=== PATIENT | female | born 1970 | race Caucasian/White ===

== ENCOUNTER 2016-11-20 08:09 | Emergency (ER) | payer MEDICAID ==
[2016-11-20 09:31] LABS: ABSOLUTE EOSINOPHILS # (AUTO) 0.2 10^3/uL (0.0-0.6); ABSOLUTE LYMPHOCYTES (AUTO) 1.3 10^3/uL (0.5-4.7); ABSOLUTE MONOCYTES (AUTO) 0.4 10^3/uL (0.1-1.4); ABSOLUTE NEUT (AUTO) 4.6 10^3/uL (1.7-8.2); BASOPHILS % (AUTO) 0.5 % (0-2); EOSINOPHILS % (AUTO) 2.9 % (0-6); HEMATOCRIT 40.2 % (36.0-47.0); HEMOGLOBIN 13.7 g/dL (12.0-15.5); HGB HCT DIFFERENCE 0.9; LYMPHOCYTES % (AUTO) 20.2 % (13-45); MEAN CORPUSCULAR HEMOGLOBIN 30.8 pg (27.0-33.4); MEAN CORPUSCULAR HGB CONC 34.1 g/dL (32.0-36.0); MEAN CORPUSCULAR VOLUME 91 fl (80-97); MONOCYTES % (AUTO) 6.5 % (3-13); RED BLOOD COUNT 4.44 10^6/uL (3.72-5.28); RED CELL DISTRIBUTION WIDTH 13.4 % (11.5-14.0); SEGMENTED NEUTROPHILS % (AUTO) 69.9 % (42-78); WHITE BLOOD COUNT 6.6 10^3/uL (4.0-10.5)
[2016-11-20 09:34] LABS: APPEARANCE,URINE SLIGHTLY-CLOUDY; BILIRUBIN,URINE NEGATIVE (NEGATIVE); GLUCOSE, URINE NEGATIVE (NEGATIVE); KETONES,URINE NEGATIVE (NEGATIVE); LEUKOCYTE ESTERASE,URINE NEGATIVE (NEGATIVE); NITRITE,URINE NEGATIVE (NEGATIVE); PROTEIN,URINE NEGATIVE (NEGATIVE); URINE SPECIFIC GRAVITY 1.015; UROBILINOGEN,URINE NEGATIVE mg/dL (<2.0)
--- NOTE | 2016-11-20 09:45 | ER Document Report ---
ED General <LEEANN DELATORRE - Last Filed: 11/20/16 13:41> - General Mode of Arrival: Ambulatory Information source: Patient TRAVEL OUTSIDE OF THE [place] IN LAST 30 DAYS: No - HPI Onset: Last week Onset/Duration: Sudden, Persistent Quality of pain: Achy Severity: Severe Pain Level: 4 Associated symptoms: Nausea Exacerbated by: Food Relieved by: Denies Similar symptoms previously: No Recently seen / treated by doctor: No <VARUN BROWER - Last Filed: 11/20/16 18:33> - General Chief Complaint: Abdominal Pain Stated Complaint: STOMACH PAIN Notes: Patient presents to the emergency department with complaints of epigastric pain that radiates to RUQ and to her back since last week. Patient reports for the past 3 days she's been unable to sleep due to the pain. She reports some nausea denies fever vomiting diarrhea. Patient reports pain increases when she eats something. She denies pain with void. She denies vaginal discharge. She reports she's been taking her Percocet from her pain management and that is not even helping the pain. (VARUN BROWER) - Related Data Allergies/Adverse Reactions: ciprofloxacin [Ciprofloxacin] Adverse Reaction (Intermediate, Verified 11/13/15 07:52) nausea and vomiting tomatoes Allergy (Uncoded 11/13/15 16:58) Past Medical History - General Information source: Patient Last Menstrual Period: 2 weeks ago - Social History Smoking Status: Unknown if Ever Smoked Cigarette use (# per day): No Frequency of alcohol use: Occasional Drug Abuse: None Lives with: Spouse/Significant other Family History: Reviewed & Not Pertinent Patient has suicidal ideation: No Patient has homicidal ideation: No Pulmonary Medical History: Reports: Hx Asthma Neurological Medical History: Reports: Hx Migraine Renal/ Medical History: Denies: Hx Peritoneal Dialysis Musculoskeltal Medical History: Reports Other - chronic low back pain Past Surgical History: Reports: Hx Appendectomy - Immunizations Hx Diphtheria, Pertussis, Tetanus Vaccination: Yes <VARUN BROWER - Last Filed: 11/20/16 18:33> Physical Exam <LEEANN DELATORRE - Last Filed: 11/20/16 13:41> <VARUN BROWER - Last Filed: 11/20/16 18:33> - Vital signs Vitals: Temp Pulse Resp BP Pulse Ox 97.5 F 78 16 120/67 98 11/20/16 08:14 11/20/16 08:14 11/20/16 08:14 11/20/16 08:14 11/20/16 08:14 - Notes Notes: PHYSICAL EXAMINATION: GENERAL: Well-appearing and in no acute distress HEAD: Atraumatic, normocephalic. EYES: Pupils equal round extraocular movements intact, sclera anicteric, conjunctiva are normal. ENT: nares patent, Moist mucous membranes. NECK: Normal range of motion, supple without lymphadenopathy LUNGS: CTAB and equal. No wheezes rales or rhonchi. HEART: Regular rate and rhythm without murmurs ABDOMEN: Soft, epigastric RUQ tenderness. No guarding, no rebound BACK: No c/o pain with palpation EXTREMITIES: Normal range of motion, no pitting edema. No cyanosis. NEUROLOGICAL: Cranial nerves grossly intact. Normal sensory/motor exams. PSYCH: Normal mood, normal affect. SKIN: Warm, Dry, normal turgor, no rashes or lesions noted (LEONARDAVARUN) Course - Laboratory Result Diagrams: 11/20/16 09:10 11/20/16 09:10 <LEEANN DELATORRE - Last Filed: 11/20/16 13:41> - Laboratory Result Diagrams: 11/20/16 09:10 11/20/16 09:10 - Diagnostic Test Radiology reviewed: Image reviewed, Reports reviewed - Diagnostic report text EXAM DESCRIPTION: U/S ABDOMEN LIMITED W/O DOP COMPLETED DATE/TIME: 2016 12:23 pm REASON FOR STUDY: RUQ PAIN COMPARISON: None. TECHNIQUE: Dynamic and static grayscale images acquired of the abdomen and recorded on PACS. Additional selected color Doppler and spectral images recorded. LIMITATIONS: Considerable bowel cast is present. . FINDINGS: PANCREAS: Obscured by gas. LIVER: No masses. Echotexture normal. 15.4 cm. LIVER VASCULATURE: Normal directional flow of the main portal vein and hepatic veins. GALLBLADDER: No stones. Normal wall thickness. No pericholecystic fluid. ULTRASOUND-DETECTED CALABRESE'S SIGN: Negative. INTRAHEPATIC DUCTS AND COMMON DUCT : CBD and intrahepatic ducts normal caliber. No filling defects. INFERIOR VENA CAVA: Normal flow. AORTA: The midportion of the aorta was obscured by gas. The proximal and distal portions of the aorta are normal. RIGHT KIDNEY: Normal size. Normal echogenicity. No solid or suspicious masses. No hydronephrosis. No calcifications. PERITONEAL AND RIGHT PLEURAL SPACE: No ascites or effusions. OTHER: No other significant findings. TECHNICAL DOCUMENTATION: JOB ID: [id number] [employer]- All Rights Reserved US/U/S ABDOMEN LIMITED W/O DOP IMPRESSION: NORMAL RIGHT UPPER QUADRANT ULTRASOUND Diagnostic report text EXAM DESCRIPTION : CT ABD/PELVIS WITH IV ORAL COMPLETED DATE/TIME: 11/20/2016 5:16 pm REASON FOR STUDY: abdominal pain COMPARISON: None. TECHNIQUE: CT scan of the abdomen and pelvis performed using helical scanning technique with dynamic intravenous contrast injection. Oral contrast. Images reviewed with lung, soft tissue, and bone windows. Reconstructed coronal and sagittal MPR images reviewed. Delayed images for evaluation of the urinary system also acquired. All images stored on PACS. All CT scanners at this facility use dose modulation , iterative reconstruction, and/or weight based dosing when appropriate to reduce radiation dose to as low as reasonably achievable (ALARA). [facility]: Dose Right [facility]: CareDose [facility]: Dose Right [facility]: Teradose 4D [facility]: inSparq CONTRAST TYPE AND DOSE: 77mL Isovue 370- low osmolar. RENAL FUNCTION: Creatinine 1.2 RADIATION DOSE: 16.14mGy. LIMITATIONS: None. FINDINGS: LOWER CHEST: No significant findings. No nodules or infiltrates. LIVER: Normal size. No masses or dilated ducts. SPLEEN: Normal size. No focal lesions. PANCREAS: No masses. No significant calcifications. No adjacent inflammation or peripancreatic fluid collections. Pancreatic duct not dilated. GALLBLADDER: No identified stones by CT criteria. No inflammatory changes to suggest cholecystitis. ADRENAL GLANDS: No significant masses or asymmetry. RIGHT KIDNEY AND URETER: No solid masses. No significant calcifications. There is mild hydronephrosis/ hydroureter. The ureter can be followed into the pelvis where it becomes of normal caliber. No obstructing calculus is seen. LEFT KIDNEY AND URETER: No solid masses. No significant calcifications. No hydronephrosis or hydroureter. There is a small parapelvic cyst. AORTA AND VESSELS: No aneurysm. No dissection. Renal arteries, SMA, celiac without stenosis. RETROPERITONEUM: No retroperitoneal adenopathy, hemorrhage or masses. BOWEL AND PERITONEAL CAVITY: No masses or inflammatory changes. No free fluid or peritoneal masses. APPENDIX: Not visualized. PELVIS: No mass or free fluid. Normal bladder. ABDOMINAL WALL: No masses. No hernias. BONES: No significant or acute findings. OTHER: No other significant finding. TECHNICAL DOCUMENTATION: JOB ID: [id number] Quality ID # [id number]: Final reports with documentation of one or more dose reduction techniques (e.g., Automated exposure control, adjustment of the mA and/or kV according to patient size, use of iterative reconstruction technique) 2010 [employer]- All Rights Reserved CT/CT ABD/PELVIS WITH IV ORAL IMPRESSION: There is mild right hydronephrosis/hydroureter the etiology of which is not certain. No calculus is seen <VARUN BROWER - Last Filed: 11/20/16 18:33> - Re-evaluation Re-evalutation: 11/20/16 13:41 (LEEANN DELATORRE) 11/20/16 10:31 Patient instructed on pending ultrasound and labs. She will given Percocet for the pain with some Zofran. 11/20/16 13:26 Labs unremarkable ultrasound negative. Patient was provided with pain medication and GI cocktail still reports abdominal pain. EKG unchanged from previous EKG. I have consulted the attending provider Dr Almonte per [facility] guidelines, CT advised. The patient presents with abdominal pain without signs of peritonitis or other life threatening or serious etiology. The patient appears stable for discharge and has been instructed to return immediately if the symptoms worsen in any way or in 8-12 hours if not improved for reevaluation. The patient has been instructed to return if the symptoms worsen or change in any way. 11/20/16 Discussed results with patient. Patient reports she had this same pain years ago and had a HIDA scan done. She reports she was placed on a antispasmodic and her symptoms went away. Patient is requesting antispasmodic. Patient was also instructed on hydronephrosis in the importance of follow-up with a urologist. She verbalized understanding to all instructions. Patient has pain medication at home. (VARUN BROWER) - Vital Signs Vital signs: Temp Pulse Resp BP Pulse Ox 99.3 F 76 20 111/64 100 11/20/16 17:17 11/20/16 17:17 11/20/16 17:17 11/20/16 17:17 11/20/16 17:17 - Laboratory Laboratory results interpreted by me: 11/20/16 09:10 Sodium 145.3 H BUN 21 H Est GFR (Non-Af Amer) 51 L Discharge <LEEANN DELATORRE - Last Filed: 11/20/16 13:41> <VARUN BROWER - Last Filed: 11/20/16 18:33> - Discharge Clinical Impression: Abdominal pain Condition: Stable Disposition: HOME, SELF-CARE Instructions: Abdominal Pain ([facility]), Antispasmodics ([facility]) Additional Instructions: *You have been evaluated for abdominal pain, hydronephrosis *Take your pain medication as prescribed *Take antispasmodic as prescribed *Follow up with your primary care provider within one week *Follow up with a urologist within one week *Return to ED for worsening condition, changes, needs *Return to ED if not better in 24 hours Prescriptions: Dicyclomine HCl [Bentyl 20 mg Tablet] 20 mg PO QID #40 tablet
[2016-11-20] MEDS ORDERED: ONDANSETRON 4 MG TAB.RAPDIS PO ONE (09:59)
[2016-11-20] MEDS ORDERED: OXYCODONE-ACETAMINOPHEN 5-325 MG TABLET PO ONE (09:59)
[2016-11-20 10:02] LABS: ALANINE AMINOTRANSFERASE 27 U/L (9-52); ALBUMIN 4.2 g/dL (3.5-5.0); ALKALINE PHOSPHATASE 94 U/L (38-126); ANION GAP 13 (5-19); ASPARTATE AMINO TRANSFERASE 23 U/L (14-36); BILIRUBIN,DIRECT 0.2 mg/dL (0.0-0.4); BILIRUBIN,TOTAL 0.4 mg/dL (0.2-1.3); BLOOD UREA NITROGEN 21 mg/dL (7-20); CALCIUM 10.1 mg/dL (8.4-10.2); CARBON DIOXIDE 25 mmol/L (22-30); CHLORIDE 107 mmol/L (98-107); CREATININE RESULT 1.15 mg/dL (0.52-1.25); GLUCOSE 91 mg/dL (75-110); LIPASE 54.7 U/L (23-300); POTASSIUM 4.1 mmol/L (3.6-5.0); SODIUM 145.3 mmol/L (137-145)
[2016-11-20] MEDS ORDERED: METOCLOPRAMIDE HCL ORAL SOLN 10 MG/10 ML UDCUP PO ONE (12:49)
[2016-11-20] MEDS ORDERED: LIDOCAINE 2% VISCOUS SOLN 20 ML UDCUP PO ONE (12:49)
[2016-11-20] MEDS ORDERED: MAG HYDROX/AL HYDROX/SIMETH SUSP 30 ML UDCUP PO ONE (12:49)
[2016-11-20 17:23] VITALS: BP 111/64
--- NOTE | 2016-11-20 21:39 | EKG REPORT ---
SEVERITY:- BORDERLINE ECG - SINUS RHYTHM BORDERLINE T ABNORMALITIES, ANTERIOR LEADS : Confirmed by: Jaquelin Conde 20-Nov-2016 21:38:53
== END 2016-11-20 18:17 | disposition home or self-care (01) ==
LOC: ER 08:09
DX: R10.13 Epigastric pain (principal); R10.11 Right upper quadrant pain; R11.0 Nausea; Z88.3 Allergy status to other anti-infective agents
CPT/HCPCS: 93005; 99285; 36415; 83690; 84703; 85025; 80053; 81001; 76705; 74177; 93010; S0119; J3490 ×3

== ENCOUNTER 2016-12-14 12:05 | Day surgery (SDC) | payer MEDICAID ==
[~2016-12-14 12:05] MED LIST: DIPHENHYDRAMINE HCL 50 MG/ML VIAL ONE; EPINEPHRINE INJ 1 MG/10 ML DISP.SYRIN ONE; FENTANYL CITRATE INJ/PF 100 MCG/2 ML AMPUL ONE; FLUMAZENIL INJ 0.5 MG/5 ML VIAL IV ONE; GLUCAGON,HUMAN RECOMB 1 MG INJ ONE; MIDAZOLAM 2 MG/2 ML INJ ONE; NALOXONE HCL INJ/PF 0.4 MG/1 ML SDV ONE; ONDANSETRON HCL INJ/PF 4 MG/2 ML SDV ONE
--- NOTE | 2016-12-14 13:44 | Operative Report ---
Operative Report DATE OF SURGERY: 12/14/16 Operative Report: The risks benefits and alternatives of the procedure explained to the patient in detail and informed consent is obtained.A GIF Olympus video scope was inserted into the patient's mouth and hypopharynx ,the esophagus is identified intubated and insufflated ,the scope was then advanced through the esophagus stomach and duodenum, retroflexion maneuver is done ,the esophagus stomach and first and second portions of the duodenum examined PREOPERATIVE DIAGNOSIS: Epigastric pain POSTOPERATIVE DIAGNOSIS: Esophagitis. Hiatal hernia. Gastritis, gastric erosions. Duodenitis OPERATION: EGD with biopsy SURGEON: SONALI STEVEN ANESTHESIA: Moderate Sedation - 2 mg of Versed, 100 mcg of fentanyl. Conscious sedation monitoring time 30 minutes. TISSUE REMOVED OR ALTERED: Gastric mucosal specimens obtained to rule out Helicobacter pylori COMPLICATIONS: None. ESTIMATED BLOOD LOSS: None. INTRAOPERATIVE FINDINGS: As described above. PROCEDURE: Patient tolerated procedure well. No immediate postprocedure complications are noted. Patient is discharged in good condition. Discharge date 12/14/2016. Discharge diet: Regular. Discharge activity: Regular. 2-3 week follow-up to discuss findings. We will await biopsies. Patient is instructed to call the office or proceed to the emergency room should there be any further problems or questions.
[2016-12-14 14:02] VITALS: BP 105/64
== END 2016-12-14 13:50 | disposition home or self-care (01) ==
LOC: END 12:05
PROVIDERS: ATTEND Internal Medicine Gastroenterology
PROC: 0DB68ZX Excision of Stomach, Via Natural or Artificial Opening Endoscopic, Diagnostic (ICD-10-PCS; principal; 2016-12-14 12:30)
DX: K20.9 Esophagitis, unspecified (principal); K29.50 Unspecified chronic gastritis without bleeding; K44.9 Diaphragmatic hernia without obstruction or gangrene; K29.80 Duodenitis without bleeding; J45.20 Mild intermittent asthma, uncomplicated; R00.0 Tachycardia, unspecified; M47.9 Spondylosis, unspecified; G43.909 Migraine, unspecified, not intractable, without status migrainosus; Z87.891 Personal history of nicotine dependence; Z79.82 Long term (current) use of aspirin; Z88.6 Allergy status to analgesic agent; Z79.891 Long term (current) use of opiate analgesic
CPT/HCPCS: 43239; 88305 ×2; J2250; J3010; J0171; J1200; J1610; J2310; J2405; J3490

== ENCOUNTER → 2017-12-05 | Outpatient (CLI) | payer MEDICAID ==
--- NOTE | 2017-12-05 20:43 | XCELERA REPORT ---
[address] [address] Transthoracic Echocardiogram Report Name: XOCHITL CONNORS Age: 47 yrs Gender: Female : 1970 Patient Status: Outpatient Patient Location: Study Date: 12/05/2017 10:12 AM Height: 768 in Weight: 154 lb BSA: 10.6 m2 Reason For Study: AFIB Ordering Physician: SANDY PUGA Performed By: Citlaly Parrish Interpretation Summary No ASD. No post. pericardial effusion. 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 Normal MV, no LA enlargement. No MR. No LVH, Normal LVEF 62% with no LVDD, Poor endocardial definition in apical view, suspect inferior wall and basal IVS hypokinesis, no LV enlargement. RH poorly seen No TR to derive RVSP, no suspicion of RH enlargement. non-cor sinus aneurysm MMode/2D Measurements & Calculations RVDd: 3.1 cm LVIDd: 4.5 cm FS: 50.1 % Ao root diam: IVSd: 0.89 cm LVIDs: 2.2 cm EDV(Teich): 91.8 ml 3.4 cm LVPWd: 0.96 cm ESV(Teich): 16.9 ml Ao root area: EF(Teich): 81.5 % 8.8 cm2 LA dimension: 2.3 cm LVOT diam: LVLd ap4: 7.8 cm SV(MOD-sp4): 41.0 ml 2.0 cm EDV(MOD-sp4): LA A2Cs: 13.8 cm2 LVOT area: 68.0 ml LVLs ap4: 6.5 cm 3.2 cm2 ESV(MOD-sp4): 27.0 ml EF(MOD-sp4): 60.3 % LA A4Cs: LA length: 4.2 cm LA Vol Index (BP): LA Volume: 26.7 ml 9.5 cm2 2.5 ml/m2 Doppler Measurements & Calculations MV E max emmanuel: MV P1/2t max emmanuel: Ao V2 max: LV V1 max P.6 cm/sec 86.0 cm/sec 96.0 cm/sec 1.9 mmHg MV A max emmanuel: MV P1/2t: 49.0 msec Ao max PG: LV V1 mean P.0 cm/sec MVA(P1/2t): 4.5 cm2 3.7 mmHg 1.2 mmHg MV E/A: 1.2 MV dec slope: WANDER(V,D): 2.3 cm2LV V1 max: 69.8 cm/sec 514.3 cm/sec2 LV V1 mean: 51.4 cm/sec LV V1 VTI: 15.2 cm SV(LVOT): 48.8 ml PA V2 max: 70.6 cm/sec PA max P.1 mmHg Left Ventricle The left ventricle is normal in size, thickness and function. There is normal left ventricular wall thickness. The left ventricular ejection fraction is normal. Doppler measurements suggest normal left ventricular diastolic function. There is inferior wall moderate hypokinesis. There is proximal septal wall mild hypokinesis. There is no thrombus. Right Ventricle The right ventricle is normal in size, thickness and function. The right ventricular systolic function is normal. Atria The right atrium is normal. The left atrial size is normal. The interatrial septum is intact with no evidence for an atrial septal defect. Mitral Valve The mitral valve is normal in structure and function. There is no evidence of mitral valve prolapse. There is no mitral valve stenosis. There is a mild amount of mitral regurgitation. Aortic Valve The aortic valve is normal in structure and functions normally. The aortic valve opens well. Cannot exclude aortic valvular vegetation. There is no aortic valve stenosis. No aortic regurgitation is present. Tricuspid Valve The tricuspid valve is not well visualized secondary to technical limitations. Pulmonic Valve There is no pulmonic valvular regurgitation. Great Vessels Sinus of Valsalva aneurysm. The aortic root is normal size. Effusions There is no pericardial effusion. I WMSI = 1.25 % Normal = 75 Segments Size X - Cannot 2 - 4 - 1-2 small Interpret 1 - Normal Hypokinetic 3 - AkineticDyskinetic 3-5 moderate 5 - 6-14 large Aneurysmal 15-16 diffuse : SANDY PUGA > Sandy Puga
== END ==
LOC: SP 10:00
PROVIDERS: ATTEND Internal Medicine Cardiovascular Disease
DX: I48.0 Paroxysmal atrial fibrillation (principal)
CPT/HCPCS: 93306

== ENCOUNTER → 2017-12-22 | Outpatient (CLI) | payer MEDICAID ==
[2017-12-22 11:35] LABS: HEMATOCRIT 39.5 % (36.0-47.0); HEMOGLOBIN 13.5 g/dL (12.0-15.5); MEAN CORPUSCULAR HGB CONC 34.1 g/dL (32.0-36.0); MEAN CORPUSCULAR VOLUME 91 fl (80-97); PLATELET COUNT 169 10^3/uL (150-450); RED BLOOD COUNT 4.34 10^6/uL (3.72-5.28); RED CELL DISTRIBUTION WIDTH 13.3 % (11.5-14.0); WHITE BLOOD COUNT 5.4 10^3/uL (4.0-10.5)
[2017-12-22 11:56] LABS: ANION GAP 12 (5-19); BLOOD UREA NITROGEN 18 mg/dL (7-20); CALCIUM 9.8 mg/dL (8.4-10.2); CARBON DIOXIDE 23 mmol/L (22-30); CHLORIDE 111 mmol/L (98-107); GLUCOSE 82 mg/dL (75-110); POTASSIUM 4.1 mmol/L (3.6-5.0); SODIUM 145.8 mmol/L (137-145)
[2017-12-22 12:10] LABS: FREE T3 3.93 pg/mL (2.77-5.27); FREE T4 (FREE THYROXINE) 0.9 ng/dL (0.78-2.19)
[2017-12-22 12:24] LABS: THYROID STIMULATING HORMONE 3.95 uIU/mL (0.47-4.68)
== END ==
LOC: OD 10:25
PROVIDERS: ATTEND Internal Medicine Cardiovascular Disease
DX: I48.0 Paroxysmal atrial fibrillation (principal); R07.9 Chest pain, unspecified
CPT/HCPCS: 36415; 80048; 83735; 83880; 84439; 84443; 84481; 85027

== ENCOUNTER 2018-04-29 10:38 | Emergency (ER) | payer MEDICAID ==
[2018-04-29] MEDS ORDERED: MAG HYDROX/AL HYDROX/SIMETH SUSP 30 ML UDCUP PO ONE (11:02)
[2018-04-29] MEDS ORDERED: LIDOCAINE 2% VISCOUS SOLN 20 ML UDCUP PO ONE (11:02)
[2018-04-29] MEDS ORDERED: METOCLOPRAMIDE HCL ORAL SOLN 10 MG/10 ML UDCUP PO ONE (11:02)
--- NOTE | 2018-04-29 11:05 | ER Document Report ---
ED Medical Screen (RME) - General Chief Complaint: Epigastric Pain Stated Complaint: CHEST DISCOMFORT Time Seen by Provider: 04/29/18 10:47 Mode of Arrival: Medic Information source: Patient, Relative, [facility] Records Notes: 48-year-old female with atrial fibrillation presents with complaint of epigastric abdominal pain, substernal chest pain and left arm pain. Patient received aspirin and nitro by EMS prior to arrival. I have greeted and performed a rapid initial assessment of this patient. A comprehensive ED assessment and evaluation of the patient, analysis of test results and completion of medical decision making process we will be contacted by additional ED providers. PHYSICAL EXAMINATION: GENERAL: Appears uncomfortable LUNGS: No respiratory distress Musculoskeletal: Normal range of motion NEUROLOGICAL: Normal speech, normal gait. PSYCH: Normal mood, normal affect. SKIN: Warm, Dry, normal turgor, no rashes or lesions noted. TRAVEL OUTSIDE OF THE [place] IN LAST 30 DAYS: No - HPI Onset: Just prior to arrival Onset/Duration: Gradual, Persistent Quality of pain: Burning, Sharp Associated Symptoms: Chest pain, Dizzy/lightheaded, Nausea, Sweating Exacerbated by: Food Relieved by: Denies Similar symptoms previously: No Recently seen / treated by doctor: No - Related Data Smoking: Non-smoker Frequency of alcohol use: None Drug Abuse: None Allergies/Adverse Reactions: ciprofloxacin [Ciprofloxacin] Adverse Reaction (Intermediate, Verified 04/29/18 10:40) nausea and vomiting aspirin Adverse Reaction (Verified 04/29/18 10:40) tomatoes Allergy (Uncoded 04/29/18 10:40) Past Medical History - Social History Chew tobacco use (# tins/day): No Frequency of alcohol use: Rare Drug Abuse: None - Past Medical History Cardiac Medical History: Reports: Hx Atrial Fibrillation Denies: Hx Coronary Artery Disease, Hx Heart Attack, Hx Hypertension Pulmonary Medical History: Reports: Hx Asthma, Hx Pneumonia - A KID Denies: Hx Bronchitis, Hx COPD Neurological Medical History: Reports: Hx Migraine. Denies: Hx Cerebrovascular Accident, Hx Seizures Renal/ Medical History: Denies: Hx Peritoneal Dialysis Musculoskeltal Medical History: Denies Hx Arthritis Past Surgical History: Reports: Hx Appendectomy. Denies: Hx Hysterectomy - Immunizations Hx Diphtheria, Pertussis, Tetanus Vaccination: Yes Physical Exam - Vital signs Vitals: Temp Pulse Resp BP Pulse Ox 97.9 F 54 L 16 117/58 L 100 04/29/18 10:54 04/29/18 10:54 04/29/18 10:54 04/29/18 10:54 04/29/18 10:54 Course - Vital Signs Vital signs: Temp Pulse Resp BP Pulse Ox 97.9 F 54 L 16 117/58 L 100 04/29/18 10:54 04/29/18 10:54 04/29/18 10:54 04/29/18 10:54 04/29/18 10:54 - Laboratory Result Diagrams: 04/29/18 09:45 04/29/18 09:45 Doctor's Discharge - Discharge Referrals: SANDY PUGA MD [Primary Care Provider] - Follow up as needed
[2018-04-29 11:09] LABS: HEMATOCRIT 44.4 % (36.0-47.0); HEMOGLOBIN 15.1 g/dL (12.0-15.5); RED BLOOD COUNT 4.79 10^6/uL (3.72-5.28); WHITE BLOOD COUNT 4.6 10^3/uL (4.0-10.5)
[2018-04-29 11:10] LABS: ABSOLUTE EOSINOPHILS # (AUTO) 0.1 10^3/uL (0.0-0.6); ABSOLUTE LYMPHOCYTES (AUTO) 1.4 10^3/uL (0.5-4.7); ABSOLUTE MONOCYTES (AUTO) 0.4 10^3/uL (0.1-1.4); ABSOLUTE NEUT (AUTO) 2.7 10^3/uL (1.7-8.2); BASOPHILS % (AUTO) 0.6 % (0-2); EOSINOPHILS % (AUTO) 3.2 % (0-6); LYMPHOCYTES % (AUTO) 29.5 % (13-45); MEAN CORPUSCULAR HEMOGLOBIN 31.6 pg (27.0-33.4); MEAN CORPUSCULAR HGB CONC 34.1 g/dL (32.0-36.0); MEAN CORPUSCULAR VOLUME 93 fl (80-97); PLATELET COUNT 155 10^3/uL (150-450); RED CELL DISTRIBUTION WIDTH 13.1 % (11.5-14.0); SEGMENTED NEUTROPHILS % (AUTO) 57.7 % (42-78); TOTAL CELLS COUNTED % (AUTO) 100 %
[2018-04-29 11:32] LABS: ALANINE AMINOTRANSFERASE 21 U/L (9-52); ALBUMIN 4.4 g/dL (3.5-5.0); ALKALINE PHOSPHATASE 67 U/L (38-126); ANION GAP 12 (5-19); ASPARTATE AMINO TRANSFERASE 21 U/L (14-36); BILIRUBIN,DIRECT 0.3 mg/dL (0.0-0.4); BILIRUBIN,TOTAL 0.5 mg/dL (0.2-1.3); BLOOD UREA NITROGEN 14 mg/dL (7-20); CALCIUM 9.7 mg/dL (8.4-10.2); CARBON DIOXIDE 23 mmol/L (22-30); CHLORIDE 110 mmol/L (98-107); GLUCOSE 74 mg/dL (75-110); LIPASE 82.8 U/L (23-300); POTASSIUM 3.5 mmol/L (3.6-5.0); SODIUM 145.3 mmol/L (137-145); TOTAL PROTEIN 7.6 g/dL (6.3-8.2)
--- NOTE | 2018-04-29 11:35 | RADIOLOGY REPORT (SQ) ---
EXAM DESCRIPTION: CHEST 2 VIEWS COMPLETED DATE/TIME: 04/29/2018 11:26 am REASON FOR STUDY: chest pain COMPARISON: 11/12/2015 EXAM PARAMETERS: NUMBER OF VIEWS: two views TECHNIQUE: Digital Frontal and Lateral radiographic views of the chest acquired. RADIATION DOSE: NA LIMITATIONS: none FINDINGS: LUNGS AND PLEURA: No opacities, masses or pneumothorax. No pleural effusion. MEDIASTINUM AND HILAR STRUCTURES: No masses or contour abnormalities. HEART AND VASCULAR STRUCTURES: Heart normal size. No evidence for failure. BONES: No acute findings. HARDWARE: None in the chest. OTHER: No other significant finding. IMPRESSION: NO ACUTE RADIOGRAPHIC FINDING IN THE CHEST. TECHNICAL DOCUMENTATION: JOB ID: [id number] [employer]- All Rights Reserved Reading location - IP/workstation name: [email or web address]
[2018-04-29] MEDS ORDERED: ONDANSETRON HCL INJ/PF 4 MG/2 ML SDV IV ONE ×2 (12:23→16:59)
--- NOTE | 2018-04-29 12:32 | ER Document Report ---
ED General <ALEXIA PICKARD - Last Filed: 04/29/18 19:22> - General Mode of Arrival: Medic TRAVEL OUTSIDE OF THE [place] IN LAST 30 DAYS: No <DONITA PÉREZ - Last Filed: 04/29/18 20:13> - General Chief Complaint: Epigastric Pain Stated Complaint: CHEST DISCOMFORT Time Seen by Provider: 04/29/18 10:47 Notes: Pt. is a 48 year old female presenting to the ED CC epigastric pain. Stated that this morning the Pt. was eating a piece of toast when she developed sharp 8 /10 pain in her epigastric region, moving into her left arm and back. Denies any choking or coughing episodes. Stated that she has an extensive history of anxiety and depression and her was not home to calm her down. Stated that she called 911. EMS gave the pt ASA and Nitro, Pt. stated the Nitro did not help her pain. Pt. stated treatments in the ED (GI cocktail) got rid of her back pain but the epigastric/center chest pain is still there. Pt. stated she is nauseated but denies fever, diarrhea, URI symptoms, dysuria, lower abd pain, vaginal d/c. Pt. is unsure of LMP. Pt. has a history of a stomach ulcer and is suppose to be taking Omeprazole but has not been taking it for the last few months because she stated she does not like doctors and does not want to go to the doctor and get her prescription refilled. History of afib which she takes ASA for, has never had a stress test or cardiac cath PMH: Stomach ulcers, gallstones, asthma, atrial fibrillation, migraines, chronic lower back pain, anxiety, depression Indications: Aspirin, Percocet, topiramate, metoprolol Allergies: Cipro (CATHYGWYNDONITA) - Related Data Allergies/Adverse Reactions: ciprofloxacin [Ciprofloxacin] Adverse Reaction (Intermediate, Verified 04/29/18 10:40) nausea and vomiting aspirin Adverse Reaction (Verified 04/29/18 10:40) tomatoes Allergy (Uncoded 04/29/18 10:40) Past Medical History - General Information source: Patient, Relative, [facility] Records - Social History Smoking Status: Former Smoker Chew tobacco use (# tins/day): No Frequency of alcohol use: Rare Drug Abuse: None Lives with: Family Family History: Reviewed & Not Pertinent Patient has suicidal ideation: No Patient has homicidal ideation: No - Past Medical History Cardiac Medical History: Reports: Hx Atrial Fibrillation Denies: Hx Coronary Artery Disease, Hx Heart Attack, Hx Hypertension Pulmonary Medical History: Reports: Hx Asthma, Hx Pneumonia - A KID Denies: Hx Bronchitis, Hx COPD Neurological Medical History: Reports: Hx Migraine. Denies: Hx Cerebrovascular Accident, Hx Seizures Renal/ Medical History: Denies: Hx Peritoneal Dialysis Musculoskeletal Medical History: Denies Hx Arthritis Past Surgical History: Reports: Hx Appendectomy. Denies: Hx Hysterectomy - Immunizations Hx Diphtheria, Pertussis, Tetanus Vaccination: Yes <DONITA PÉREZ - Last Filed: 04/29/18 20:13> Review of Systems - Review of Systems Constitutional: See HPI EENT: See HPI Cardiovascular: See HPI Respiratory: See HPI Gastrointestinal: See HPI Genitourinary: See HPI Female Genitourinary: See HPI Musculoskeletal: See HPI Skin: No symptoms reported Hematologic/Lymphatic: No symptoms reported Neurological/Psychological: No symptoms reported <DONITA PÉREZ - Last Filed: 04/29/18 20:13> Physical Exam <ALEXIA PICKARD - Last Filed: 04/29/18 19:22> <DONITA PÉREZ - Last Filed: 04/29/18 20:13> - Vital signs Vitals: Temp Pulse Resp BP Pulse Ox 97.9 F 54 L 16 117/58 L 100 04/29/18 10:54 04/29/18 10:54 04/29/18 10:54 04/29/18 10:54 04/29/18 10:54 - Notes Notes: GENERAL: Alert, interacts well. No acute distress. HEAD: Normocephalic, atraumatic. EYES: Pupils equal, round, and reactive to light. Extraocular movements intact. ENT: Oral mucosa moist, tongue midline. NECK: Full range of motion. Supple. Trachea midline. LUNGS: Clear to auscultation bilaterally, no wheezes, rales, or rhonchi. No respiratory distress. HEART: Regular rate and rhythm. No murmur. Sharp chest pain center of chest over sternum, no crepitus felt ABDOMEN: Soft, Non-distended. Bowel sounds present in all 4 quadrants. Mild epigastric tenderness. No Ngo's sign, no McBurney's point tenderness. EXTREMITIES: Moves all 4 extremities spontaneously. No edema, normal radial and dorsalis pedis pulses bilaterally. No cyanosis. BACK: no cervical, thoracic, lumbar midline tenderness. No saddle anesthesia, normal distal neurovascular exam. NEUROLOGICAL: Alert and oriented x3. Normal speech. PSYCH: Normal affect, normal mood. SKIN: Warm, dry, normal turgor. No rashes or lesions noted. (DONITA PÉREZ) Course - Laboratory Result Diagrams: 04/29/18 09:45 04/29/18 09:45 <ALEXIA PICKARD - Last Filed: 04/29/18 19:22> - Laboratory Result Diagrams: 04/29/18 09:45 04/29/18 09:45 <DONITA PÉREZ - Last Filed: 04/29/18 20:13> - Re-evaluation Re-evalutation: 04/29/18 19:22 I have evaluated the patient multiple times today and discussed the case with Dr. Meyer who is covering for Dr. Lawler. Dr. Meyer has reviewed the EKG. Patient's pain is atypical. She does have a significant GI history with bleeding ulcers in the past. I suspect that this is more of a GI issue. Patient's troponins have remained negative. Her heart score is 2 which is low risk. I have recommended that she follow-up with the automation clerk tomorrow. She did have an appointment on May 04 to set up an event recording given her history of past atrial fibrillation (which is not and now). She has been seen by a GI doctor in the past and she will follow-up with the GI doctor (she could not remember the name, the but knows where the office is and likes that person). We will place the patient on an acid herberth as well as Carafate. I have advised her to return to the emergency room for any worsening symptoms. ( ALEXIA PICKARD) Discussed case with Dr. Pickard who recommends CTA and IV Pepcid due to pain being somewhat relieved with GI cocktail. Pt. continues to have 8/10 pain in the center of her chest, denies pain into her back or left arm at this time. CTA negative, pain medications given multiple times for chest pain. Stated that the pain medications have not helped at all. Three total Troponins negative with a history of gastric ulcers makes me think this is not cardiac in nature. Dr. Wyman is the Pts gastro (her knew the name) and they will call tomorrow for apt. Pt. stated she has Dr. Lawler as her automation clerk (who works in Dr. mSith's office) and she will also call him tomorrow. pts is in the room with the pt and agrees with this tx plan. Return precautions given. (DONITA PÉREZ) - Vital Signs Vital signs: Temp Pulse Resp BP Pulse Ox 97.6 F 60 16 109/62 100 04/29/18 20:02 04/29/18 20:02 04/29/18 20:02 04/29/18 20:02 04/29/18 20:02 - Laboratory Laboratory results interpreted by me: 04/29/18 09:45 Sodium 145.3 H Potassium 3.5 L Chloride 110 H Glucose 74 L Discharge <ALEXIA PICKARD - Last Filed: 04/29/18 19:22> <DONITA PÉREZ - Last Filed: 04/29/18 20:13> - Discharge Clinical Impression: Atypical chest pain Gastritis Qualifiers: Gastritis type: unspecified gastritis Chronicity: acute Gastritis bleeding: without bleeding Qualified Code(s): K29.00 - Acute gastritis without bleeding Condition: Stable Disposition: HOME, SELF-CARE Additional Instructions: You have been seen in the emergency department for atypical chest pain and gastritis. As discussed with myself and Dr. Pickard you must follow-up with the automation clerk and also with the fireboat operator as soon as possible. Phone numbers are within this paperwork. Take the prescriptions I have written for you as prescribed. Return to the emergency department should you develop any other concerning symptoms. Gastritis You have an inflammation of the stomach called gastritis. This commonly causes upper abdominal pain, nausea, and vomiting. In severe cases, bleeding of the stomach lining can occur. Gastritis can be caused by bacteria or viruses , alcohol, or stomach-irritating drugs. Begin with sips of clear liquids. Take increasing amounts of fluid over the first 24 hours. Then start small amounts of bland foods (such as dry toast , applesauce, mashed potato). Gradually resume your usual diet. You should take antacids every two hours until the pain has subsided. Acid -suppressing drugs may be prescribed as well. Avoid aspirin, caffeine, tobacco , and alcohol. If the abdominal pain worsens, or there is evidence of major bleeding in the stomach (such as black, tarry stool, bloody or black vomit, or lightheadedness), you should return immediately. Call the doctor if you aren't improved in 24 to 36 hours. Prescriptions: Omeprazole 20 mg PO DAILY #30 tablet. Sucralfate [Carafate 1 gm Tablet] 1 gm PO QID #20 tablet Referrals: SONALI WYMAN MD [ACTIVE STAFF] - Follow up as needed KIARA MEYER MD [ACTIVE STAFF] - Follow up as needed SANDY LAWLER MD [EMERITUS] - Follow up as needed
--- NOTE | 2018-04-29 13:19 | RADIOLOGY REPORT (SQ) ---
EXAM DESCRIPTION: U/S ABDOMEN LIMITED W/O DOP COMPLETED DATE/TIME: 04/29/2018 1:09 pm REASON FOR STUDY: epigastric/RUQ pain COMPARISON: None. TECHNIQUE: Dynamic and static grayscale images acquired of the abdomen and recorded on PACS. Additio nal selected color Doppler and spectral images recorded. LIMITATIONS: Overlying bowel gas. FINDINGS: PANCREAS: Obscured. LIVER: Echotexture is coarse with increased echogenicity consistent with fatty infiltration. LIVER VASCULATURE: Normal directional flow of the main portal vein and hepatic veins. GALLBLADDER: No stones. Normal wall thickness. No pericholecystic fluid. ULTRASOUND-DETECTED CALABRESE'S SIGN: Negative. INTRAHEPATIC DUCTS AND COMMON DUCT: CBD and intrahepatic ducts normal caliber. No filling defects. INFERIOR VENA CAVA: Normal flow. AORTA: No aneurysm. RIGHT KIDNEY: Normal size. Normal echogenicity. No solid or suspicious masses. No hydronephros is. No calcifications. PERITONEAL AND RIGHT PLEURAL SPACE: No ascites or effusions. OTHER: No other significant finding. IMPRESSION: No acute findings. Fatty liver. TECHNICAL DOCUMENTATION: JOB ID: [id number] [employer]- All Rights Reserved Reading location - IP/workstation name: [email or web address]
--- NOTE | 2018-04-29 16:06 | EKG REPORT ---
SEVERITY:- BORDERLINE ECG - SINUS RHYTHM BORDERLINE T ABNORMALITIES, ANTERIOR LEADS : Confirmed by: Jaquelin Conde 29-Apr-2018 16:06:02
[2018-04-29] MEDS ORDERED: FAMOTIDINE INJ/PF 20 MG/2 ML SDV IV ONE (16:43)
[2018-04-29] MEDS ORDERED: PANTOPRAZOLE SODIUM 40 MG VIAL IV ONE (16:59)
[2018-04-29] MEDS ORDERED: MORPHINE SULFATE 10 MG/ML INJ IV ONE ×2 (17:00→17:58)
--- NOTE | 2018-04-29 17:38 | RADIOLOGY REPORT (SQ) ---
EXAM DESCRIPTION: CTA CHEST COMPLETED DATE/TIME: 04/29/2018 5:10 pm REASON FOR STUDY: chest pain COMPARISON: 11/13/2015 TECHNIQUE: CT scan of the chest performed using helical scanning technique with dynamic intravenous contrast injection. Images reviewed with lung, soft tissue and bone windows. Reconstructed coronal and sagittal MPR images reviewed. Additional 3 dimensional post-processing performed to develop Maximal Intensity Projection images (RI P). All images stored on PACS. All CT scanners at this facility use dose modulation, iterative reconstruction, and/or weight based d osing when appropriate to reduce radiation dose to as low as reasonably achievable (ALARA). [facility]: Dose Right [facility]: CareDose [facility]: Dose Right [facility]: Teradose 4D [facility]: Exacter CONTRAST TYPE AND DOSE: contrast/concentration: Isovue 350.00 mg/ml; Total Contrast Delivered: 66.0 ml; Total Saline Delivered: 90.0 ml Contrast bolus optimized for the pulmonary arteries. Not diagnostic for the aorta. RENAL FUNCTION: GFR > 60. RADIATION DOSE: CT Rad equipment meets quality standard of care and radiation dose reduction techniq ues were employed. CTDIvol: 14.3 - 19.8 mGy. DLP: 569 mGy-cm. . LIMITATIONS: None. FINDINGS: LUNGS AND PLEURA: No masses, infiltrates, or pneumothorax. No pleural effusions or pleura l calcifications. AORTA AND GREAT VESSELS: No aneurysm. Contrast bolus not optimized for the aorta. HEART: No pericardial effusion. No significant coronary artery calcifications. PULMONARY ARTERIES: No emboli visualized in the main pulmonary arteries or the segmental branches. HILAR AND MEDIASTINAL STRUCTURES: No identified masses or abnormal nodes. HARDWARE: None in the chest. UPPER ABDOMEN: No acute findings. Limited exam. THYROID AND OTHER SOFT TISSUES: 10 mm left thyroid hypodense nodule. No adenopathy. BONES: No acute or significant finding. 3D MIPS: Confirm above findings. OTHER: No other significant finding. IMPRESSION: No acute findings. No emboli visualized in the main pulmonary arteries or the segmental branches. COMMENT: Quality ID # [id number]: Final reports with documentation of one or more dose reduction techniques (e.g., Automated exposure control, adjustment of the mA and/or kV according to patient size, use of iterative reconstruction technique) TECHNICAL DOCUMENTATION: JOB ID: [id number] [place]-72 2010 [employer]- All Rights Reserved Reading location - IP/workstation name: [email or web address]
[2018-04-29 20:07] VITALS: BP 109/62
--- NOTE | 2018-04-29 22:53 | EKG REPORT ---
SEVERITY:- BORDERLINE ECG - SINUS RHYTHM BORDERLINE T ABNORMALITIES, ANTERIOR LEADS : Confirmed by: Jaquelin Conde 29-Apr-2018 22:53:11
--- NOTE | 2018-04-29 22:53 | EKG REPORT ---
SEVERITY:- BORDERLINE ECG - SINUS RHYTHM CONSIDER RIGHT VENTRICULAR HYPERTROPHY BORDERLINE R WAVE PROGRESSION, ANTERIOR LEADS : Confirmed by: Jaquelin Conde 29-Apr-2018 22:52:59
== END 2018-04-29 20:07 | disposition home or self-care (01) ==
LOC: ER 10:38
DX: K29.00 Acute gastritis without bleeding (principal); T47.1X6A Underdosing of other antacids and anti-gastric-secretion drugs, initial encounter; Z91.128 Patient's intentional underdosing of medication regimen for other reason; Z91.14 Patient's other noncompliance with medication regimen; R07.89 Other chest pain; M79.602 Pain in left arm; R11.0 Nausea; M54.9 Dorsalgia, unspecified; G89.29 Other chronic pain; J45.909 Unspecified asthma, uncomplicated; G43.909 Migraine, unspecified, not intractable, without status migrainosus; I48.91 Unspecified atrial fibrillation; Z79.02 Long term (current) use of antithrombotics/antiplatelets; Z79.891 Long term (current) use of opiate analgesic; Z87.19 Personal history of other diseases of the digestive system; Z88.1 Allergy status to other antibiotic agents; Z91.018 Allergy to other foods
CPT/HCPCS: 93005; 96376; 99285; 96374; 96375; 36415; 83690; 85025; 81025; 80053; 84484; 71046; 76705; 71275; 93010; J3490 ×3; J2270; S0164; J2405; S0028

== ENCOUNTER 2018-08-17 00:26 | Emergency (ER) | payer MEDICAID ==
[2018-08-17] MEDS ORDERED: ASPIRIN 81 MG TABLET, CHEWABLE PO ONE (01:10)
[2018-08-17] MEDS: ASPIRIN 81 MG TABLET, CHEWABLE ONE ×2 (01:12→01:14)
[2018-08-17] MEDS ORDERED: NORMAL SALINE 1000 ML 1,000 ML IV ONE ×2 (01:14→03:22)
[2018-08-17] MEDS ORDERED: METOPROLOL TARTRATE PF/INJ 5 MG/5 ML SDV IV ONE (01:15)
--- NOTE | 2018-08-17 01:19 | ER Document Report ---
ED General - General Mode of Arrival: Ambulatory Information source: Patient TRAVEL OUTSIDE OF THE [place] IN LAST 30 DAYS: No <INDIANA HINTON - Last Filed: 08/17/18 01:27> <BIN LANG - Last Filed: 08/17/18 06:57> - General Chief Complaint: Chest Pain Stated Complaint: CHEST PAIN Time Seen by Provider: 08/17/18 01:04 Notes: Patient is a 48 year old female with afib presents to the emergency department complaining of her heart racing onset tonight. Patient states she noticed her heart racing around 2345 tonight. at bedside states the patient intermittently goes into afib and tachycardia but states tonight was the fastest her heart has been. She also report missing her Metoprolol dose today, further stating she ran out of her medication yesterday. She states she normally takes her dose around 2030, nightly. She further reports taking 325 mg Aspirin today and daily. Patient is also on chronic pain management. (INDIANA HINTON) - Related Data Allergies/Adverse Reactions: ciprofloxacin [Ciprofloxacin] Adverse Reaction (Intermediate, Verified 08/17/18 00:28) nausea and vomiting tomatoes Allergy (Uncoded 08/17/18 00:28) Past Medical History - General Information source: Patient - Social History Smoking Status: Former Smoker Cigarette use (# per day): No Chew tobacco use (# tins/day): No Smoking Education Provided: No Frequency of alcohol use: None Family History: Reviewed & Not Pertinent - Past Medical History Cardiac Medical History: Reports: Hx Atrial Fibrillation Pulmonary Medical History: Reports: Hx Asthma, Hx Pneumonia - A KID Neurological Medical History: Reports: Hx Migraine Past Surgical History: Reports: Hx Appendectomy - Immunizations Hx Diphtheria, Pertussis, Tetanus Vaccination: Yes <INDIANA HINTON - Last Filed: 08/17/18 01:27> Review of Systems - Review of Systems Constitutional: No symptoms reported EENT: No symptoms reported Cardiovascular: See HPI, Heart racing Respiratory: No symptoms reported Gastrointestinal: No symptoms reported Genitourinary: No symptoms reported Female Genitourinary: No symptoms reported Musculoskeletal: No symptoms reported Skin: No symptoms reported Hematologic/Lymphatic: No symptoms reported Neurological/Psychological: No symptoms reported -: Yes All other systems reviewed and negative <INDIANA HINTON - Last Filed: 08/17/18 01:27> Physical Exam <INDIANA HINTON - Last Filed: 08/17/18 01:27> - Vital signs Vitals: Temp Pulse BP Pulse Ox 97.7 F 60 120/67 98 08/17/18 00:48 08/17/18 00:48 08/17/18 00:48 08/17/18 00:48 - Notes Notes: GENERAL: Alert, interacts well. No acute distress. HEAD: Normocephalic, atraumatic. EYES: Pupils equal, round, and reactive to light. Extraocular movements intact. ENT: Oral mucosa moist, tongue midline. NECK: Full range of motion. Supple. Trachea midline. LUNGS: Clear to auscultation bilaterally, no wheezes, rales, or rhonchi. No respiratory distress. HEART: Irregular irregular, tachycardic. ABDOMEN: Soft, non-tender. Non-distended. Bowel sounds present in all 4 quadrants. EXTREMITIES: Moves all 4 extremities spontaneously. No edema, radial and dorsalis pedis pulses 2/4 bilaterally. No cyanosis. NEUROLOGICAL: Alert and oriented x3. Normal speech. PSYCH: Normal affect, normal mood. SKIN: Warm, dry, normal turgor. No rashes or lesions noted. (MARY JANEINDIANA REDMOND) Course - Laboratory Result Diagrams: 08/17/18 00:52 08/17/18 00:52 - EKG Interpretation by Vt EKG shows normal: [place], Intervals, QRS Complexes. abnormal: ST-T Waves - Borderline T abnormalities Rate: Tachycardia - 126 Rhythm: A.Fib, A.Flutter <BIN LANG - Last Filed: 08/17/18 06:57> - Re-evaluation Re-evalutation: 08/17/18 04:14 During the physical exam, the patient's monitor showed a heart rate was up to 160. She was given a 2.5 mg dose of Lopressor IV. That did slow her rate to below 100 but because her blood pressure did drop into the 70s systolic. After 2 L of fluid and some time, her blood pressure is 88/67 and her heart rate is running in the 110 range. These blood pressure readings are from the automatic blood pressure cuff. The patient seems to be tolerating these low pressures quite well. I palpated her radial pulse and it would be very strong on some beats and not so much on others. I wonder if the machine is getting erroneous readings. We will get manual cuff to determine what her highest systolic really is. It is still a problem that her heart rate is starting to go back up. 08/17/18 05:23 The patient appears to have just recently gone into a normal sinus rhythm with a rate of 79, her blood pressure is up to 98/56 which is close to her baseline. 08/17/18 06:55 The patient remains in normal sinus rhythm. She states she feels well and is ready to go home. Her blood pressure is about 88 systolic, but she is completely asymptomatic with this. She and her spouse both state that she has a low blood pressure almost all the time. She would like to go home and get some sleep because she has been up all night. She is encouraged to drink plenty of fluids, get something eat, then get plenty of sleep. She should have her spouse go get her metoprolol prescription refilled so she can start taking it today. (BIN LANG) - Vital Signs Vital signs: Temp Pulse Resp BP Pulse Ox 97.8 F 60 12 85/57 L 98 08/17/18 01:01 08/17/18 00:48 08/17/18 06:45 08/17/18 06:45 08/17/18 06:45 - Laboratory Laboratory results interpreted by me: 08/17/18 00:52 Chloride 111 H Est GFR (Non-Af Amer) 52 L Glucose 123 H Discharge <INDIANA HINTON - Last Filed: 08/17/18 01:27> <BIN LANG - Last Filed: 08/17/18 06:57> - Discharge Clinical Impression: Atrial fibrillation with rapid ventricular response Hypotension Qualifiers: Hypotension type: unspecified hypotension type Qualified Code(s): I95.9 - Hypotension, unspecified Condition: Stable Disposition: HOME, SELF-CARE Additional Instructions: Atrial Fibrillation Atrial fibrillation is an abnormal heart rhythm, caused by irregular electrical circuits in the upper heart chamber. It can be caused by heart valve disease, hardening of the arteries, or metabolic problems such as thyroid disease, or may occur without a clear cause. Atrial fibrillation may occur only occasionally, or may be chronic. Atrial fibrillation often results in a very fast heart rate, with palpitations, lightheadedness, and shortness of breath. Treatment is to slow the abnormally fast rate, and to convert the rhythm back to normal, if possible. Many patients stay in atrial fibrillation for years without symptoms or complications. Your doctor will decide whether you can be converted back to a normal heart rhythm. Contact the doctor or emergency medical system at once if you develop chest pain, shortness of breath, or severe lightheadedness, or if you develop any disturbance of consciousness, problems with speech, or localized weakness. Drink plenty of fluids and eat something when you get home. Get plenty of sleep and rest today. Be sure to get your metoprolol prescription refilled today. RETURN TO THE EMERGENCY ROOM IF ANY NEW OR WORSENING SYMPTOMS. Referrals: SANDY PUGA MD [Primary Care Provider] - Follow up as needed Scribe Attestation: 08/17/18 04:15 I personally performed the services described in the documentation, reviewed and edited the documentation which was dictated to the scribe in my presence, and it accurately records my words and actions. (BIN LANG) Scribe Documentation - Scribe Written by Saul:: Saul Zamarripa, 08/17/2018 01:22 acting as scribe for :: Tania <INDIANA HINTON - Last Filed: 08/17/18 01:27>
[2018-08-17 03:35] LABS: ABSOLUTE EOSINOPHILS # (AUTO) 0.3 10^3/uL (0.0-0.6); ABSOLUTE LYMPHOCYTES (AUTO) 2.3 10^3/uL (0.5-4.7); ABSOLUTE MONOCYTES (AUTO) 0.6 10^3/uL (0.1-1.4); ABSOLUTE NEUT (AUTO) 4.5 10^3/uL (1.7-8.2); BASOPHILS % (AUTO) 0.4 % (0-2); EOSINOPHILS % (AUTO) 4.3 % (0-6); HEMATOCRIT 40.1 % (36.0-47.0); HEMOGLOBIN 13.8 g/dL (12.0-15.5); LYMPHOCYTES % (AUTO) 29.5 % (13-45); MEAN CORPUSCULAR HEMOGLOBIN 31.4 pg (27.0-33.4); MEAN CORPUSCULAR HGB CONC 34.5 g/dL (32.0-36.0); MEAN CORPUSCULAR VOLUME 91 fl (80-97); MONOCYTES % (AUTO) 8.3 % (3-13); PLATELET COUNT 183 10^3/uL (150-450); RED CELL DISTRIBUTION WIDTH 12.7 % (11.5-14.0); SEGMENTED NEUTROPHILS % (AUTO) 57.5 % (42-78); TOTAL CELLS COUNTED % (AUTO) 100 %; WHITE BLOOD COUNT 7.8 10^3/uL (4.0-10.5)
[2018-08-17 03:55] LABS: ALANINE AMINOTRANSFERASE 27 U/L (9-52); ALBUMIN 4.1 g/dL (3.5-5.0); ALKALINE PHOSPHATASE 91 U/L (38-126); ANION GAP 8 (5-19); ASPARTATE AMINO TRANSFERASE 23 U/L (14-36); BILIRUBIN,DIRECT 0.2 mg/dL (0.0-0.4); BILIRUBIN,TOTAL 0.2 mg/dL (0.2-1.3); BLOOD UREA NITROGEN 20 mg/dL (7-20); CALCIUM 9.8 mg/dL (8.4-10.2); CARBON DIOXIDE 24 mmol/L (22-30); CHLORIDE 111 mmol/L (98-107); CREATINE KINASE 35 U/L (30-135); GLUCOSE 123 mg/dL (75-110); SODIUM 143.4 mmol/L (137-145); TOTAL PROTEIN 6.9 g/dL (6.3-8.2)
[2018-08-17 04:09] LABS: CREATINE KINASE MB < 0.22 ng/mL (<4.55); TROPONIN I < 0.012 ng/mL
[2018-08-17 07:06] VITALS: BP 89/63
--- NOTE | 2018-08-17 18:33 | EKG REPORT ---
SEVERITY:- BORDERLINE ECG - A FIB BORDERLINE T WAVE ABNORMALITIES : Confirmed by: Jaquelin Conde 17-Aug-2018 18:32:13
--- NOTE | 2018-08-19 18:30 | EKG REPORT ---
SEVERITY:- NORMAL ECG - SINUS RHYTHM : Confirmed by: Ana Maria Meyer MD 19-Aug-2018 18:30:16
== END 2018-08-17 07:06 | disposition home or self-care (01) ==
LOC: ER 00:26
DX: I48.91 Unspecified atrial fibrillation (principal); T44.7X6A Underdosing of beta-adrenoreceptor antagonists, initial encounter; Z91.128 Patient's intentional underdosing of medication regimen for other reason; Z91.14 Patient's other noncompliance with medication regimen; Z79.82 Long term (current) use of aspirin; Z79.899 Other long term (current) drug therapy; I48.92 Unspecified atrial flutter; I95.9 Hypotension, unspecified; R00.0 Tachycardia, unspecified; G89.29 Other chronic pain; Z91.018 Allergy to other foods; Z87.891 Personal history of nicotine dependence; J45.909 Unspecified asthma, uncomplicated
CPT/HCPCS: 93005; 99285; 96361; 96374; 36415; 82553; 82550; 85025; 80053; 84484; 93010; J3490; J7030